=== PATIENT | female | born 1965 | race Caucasian/White ===

== ENCOUNTER 2016-11-12 20:42 | Emergency (ER) | payer OTHER ==
[~2016-11-12] VITALS: Ht 162.6 cm; Wt 56.0 kg
[2016-11-12 20:45] VITALS: Ht 162.6 cm; Wt 56.0 kg
[2016-11-12] MEDS ORDERED: CLIN-73 PO (21:53)
[2016-11-12] MEDS ORDERED: IBUP-1542 PO (21:53)
[2016-11-12] MEDS ORDERED: AMOX1TAB10 PO (21:53)
[2016-11-12] MEDS ORDERED: MUPI22OI2 TOP (21:53)
[2016-11-12] MEDS ORDERED: CEFTRIAXONE 1 GM INJ IM ONE (22:00)
[2016-11-12] MEDS ORDERED: IBUPROFEN 600 MG TAB PO ONE (22:00)
[2016-11-12] MEDS ORDERED: CLINDAMYCIN 300 MG CAP PO ONE (22:00)
[2016-11-12] MEDS ORDERED: MUPIROCIN 2% 22 GM OINT TOP ONE (22:00)
--- NOTE | 2016-11-12 22:17 | ERD ---
ER Documentation Chief Complaint Date/Time DATE: 11/12/16 TIME: 22:11 Chief Complaint sp cat bite yeterday, left arm redness, swelling, pain HPI 51-year-old woman complains of pain, redness, swelling to the left posterior forearm secondary to Bite which occurred yesterday morning (over 24 hours ago). She states symptoms began earlier today. Patient denies fevers or chills, no paresis or paresthesias, no purulent discharge, no chest pain or shortness of breath, no difficulty moving her arm wrist hand or fingers. ROS All systems reviewed and are negative except as per history of present illness. Medications Home Meds Active Scripts Ibuprofen* (Ibuprofen*) 600 Mg Tablet, 600 MG PO Q8 for PAIN AND/OR INFLAMMATION , #60 TAB Prov:DARREN OROPEZA MD 11/12/16 Mupirocin* (Bactroban*) 2% -22 Gram Oint...g., 1 APPLIC TOP BID for 14 Days, EA Prov:DARREN OROPEZA MD 11/12/16 Clindamycin Hcl* (Clindamycin Hcl*) 300 Mg Capsule, 300 MG PO TID for 10 Days, CAP Prov:DARREN OROPEZA MD 11/12/16 Amoxicillin/Potassium Clav (Amox-Clav 875-125 mg Tablet) 875-125 mg Tab, 1 TAB PO BID for 10 Days, #20 TAB Prov:DARREN OROPEZA MD 11/12/16 Allergies Allergies: Coded Allergies: No Known Allergy (Unverified , 11/12/16) PMhx/Soc None Hx Neurological Disorder: Yes (nerve problem) Hx Alcohol Use: No Hx Substance Use: No Hx Tobacco Use: No Smoking Status: Never smoker FmHx Family History: No diabetes Physical Exam Vitals Vital Signs Date Time Temp Pulse Resp B/P Pulse Ox O2 Delivery O2 Flow Rate FiO2 11/12/16 20:45 98.5 90 20 134/83 99 Physical Exam GENERAL: Well-developed, well-nourished, well-hydrated, in no apparent distress , looks nontoxic in appearance HEENT: Moist mucous membranes, pink conjunctiva, no cervical spine tenderness or step-off deformities, no goiter, no jaundice or icterus, extraocular movements intact without pain. No submandibular induration, and no pharyngeal erythema NEURO: Alert and oriented 3, cranial nerves II through XII intact bilaterally, pupils equal round reactive to light, no focal deficits or facial asymmetry, sensation intact distally Strength 5/5 in upper and lower extremities bilaterally CARDIAC: Regular rate and rhythm, no murmurs rubs or gallops LUNGS: Clear bilaterally no wheezing crackles or stridor ABDOMEN: Soft nontender, no guarding, no rigidity, no rebound, no psoas sign no obturator sign. Normoactive bowel sounds SKIN: Moderately sized zone of erythema and skin induration over the dorsal aspect of the left forearm with 2 small puncture wounds consistent with recent Bite. There is no purulent discharge noted, no ulcers, no bleeding, no skin breakdown. Erythema measures about 6 x 8 cm in size and does not cross the elbow or wrist. EXTREMITIES: No clubbing cyanosis or edema, calves are bilaterally symmetrical, no Homans sign, no popliteal cord sign. Distal pulses equal and bilateral PSYCH: Normal affect without agitation or irritability Results 24 hrs Current Medications Medications (Trade) Dose Ordered Sig/Sg Route PRN Reason Start Time Stop Time Status Last Admin Dose Admin Ceftriaxone Sodium (Rocephin) 1 gm ONCE ONCE IM 11/12/16 22:00 11/12/16 22:01 DC Ibuprofen (Motrin) 600 mg ONCE ONCE PO 11/12/16 22:00 11/12/16 22:01 DC Mupirocin (Bactroban) 1 applic ONCE ONCE TOP 11/12/16 22:00 11/12/16 22:01 DC Clindamycin HCl (Cleocin) 300 mg ONCE ONCE PO 11/12/16 22:00 11/12/16 22:01 DC Procedures/MDM I administered ibuprofen 600 mg p.o., mupirocin 2% antibiotic ointment was applied to the forearm, she was given ceftriaxone 1 g intramuscular injection and clindamycin 300 mg p.o. I told the patient to return here tomorrow for reevaluation and told her she may in fact have to be admitted for IV antibiotics but initially we will attempt a trial of outpatient oral antibiotics. She developed an obvious cellulitis although at this time and has not crossed any of her joints and may respond appropriately to outpatient oral antibiotics. Patient has no signs or symptoms of systemic involvement. Differential diagnoses considered, included but not limited to pyomyositis, infectious tenosynovitis, lymphangitis, retained foreign body, as well as metabolic, hematologic, and electrolyte abnormalities. As well as abscess, cellulitis, fractures, and dislocations. Patient feels much better at this time, and vital signs are normal, symptoms have improved. I did give strict instructions to return to the ED if symptoms continue or worsen, patient will otherwise follow-up with primary care physician. Patient understood instructions and agreed to plan. Disclaimer: Inadvertent spelling and grammatical errors are likely due to EHR/ dictation software use and do not reflect on the overall quality of patient care. Also, please note that the electronic time recorded on this note does not necessarily reflect the actual time of the patient encounter. Departure Diagnosis: Primary Impression: Cat bite Encounter type: initial encounter Qualified Code: W55.01XA - Cat bite, initial encounter Additional Impression: Cellulitis of forearm, left Condition: Good Patient Instructions: Cat Bite DARREN OROPEZA MD Nov 12, 2016 22:17
[2016-11-12] MEDS ORDERED: DIPHTH/TET/ACEL PERTUSS (ADULT) 0.5 ML VIAL IM* ONE (23:00)
== END 2016-11-12 22:39 | disposition home or self-care (01) ==
LOC: FTE 20:42
DX: S51.852A Open bite of left forearm, initial encounter (principal); L03.114 Cellulitis of left upper limb; W55.01XA Bitten by cat, initial encounter; Y92.9 Unspecified place or not applicable; Z23 Encounter for immunization
CPT/HCPCS: 90471; 90715; 96372; J0696; Z7502; Z7610

== ENCOUNTER 2016-11-18 12:44 | Emergency (ER) | payer OTHER ==
[~2016-11-18] VITALS: Ht 165.1 cm; Wt 57.5 kg
[~2016-11-18 12:44] MED LIST: AMOX1TAB10 PO; CLIN-73 PO; IBUP-1542 PO; MUPI22OI2 TOP
[2016-11-18 12:46] VITALS: Ht 165.1 cm; Wt 57.5 kg
[2016-11-18] MEDS ORDERED: HC1C30 TOP (13:09)
[2016-11-18] MEDS ORDERED: HYDR-842 PO (13:09)
--- NOTE | 2016-11-18 13:27 | ERD ---
ER Documentation Chief Complaint Date/Time DATE: 11/18/16 TIME: 13:25 Chief Complaint RASH/BITES ALL OVER, ONSET 2 WEEKS, ITCHING HPI 51-year-old female who presents to the emergency room with a rash and bug bites over her extremities and trunk for approximately 2 weeks with associated pruritus. She denies any interdigital space lesions, no fevers or chills. She denies any new medications or detergents. ROS All systems reviewed and are negative except as per history of present illness. Medications Home Meds Active Scripts Hydroxyzine Hcl* (Atarax*) 25 Mg Tab, 25 MG PO Q6H Y for ITCHING, #30 TAB Prov:ARUNA CHOWDHURY MD 11/18/16 Hydrocortisone* Topical (Hydrocortisone* Topical) 1%-28.35 Gm Cream..g., 1 APPLIC TOP Q6 Y for ITCHING, #1 TUB Prov:ARUNA CHOWDHURY MD 11/18/16 Ibuprofen* (Ibuprofen*) 600 Mg Tablet, 600 MG PO Q8 for PAIN AND/OR INFLAMMATION , #60 TAB Prov:DARREN OROPEZA MD 11/12/16 Mupirocin* (Bactroban*) 2% -22 Gram Oint...g., 1 APPLIC TOP BID for 14 Days, EA Prov:DARREN OROPEZA MD 11/12/16 Clindamycin Hcl* (Clindamycin Hcl*) 300 Mg Capsule, 300 MG PO TID for 10 Days, CAP Prov:DARREN OROPEZA MD 11/12/16 Amoxicillin/Potassium Clav (Amox-Clav 875-125 mg Tablet) 875-125 mg Tab, 1 TAB PO BID for 10 Days, #20 TAB Prov:DARREN OROPEZA MD 11/12/16 Allergies Allergies: Coded Allergies: No Known Allergy (Unverified , 11/12/16) PMhx/Soc History of Surgery: No Anesthesia Reaction: No Hx Neurological Disorder: No Hx Respiratory Disorders: No Hx Cardiac Disorders: No Hx Psychiatric Problems: No Hx Miscellaneous Medical Probl: No Hx Alcohol Use: No Hx Substance Use: No Hx Tobacco Use: No Smoking Status: Never smoker FmHx Family History: No diabetes Physical Exam Vitals Vital Signs Date Time Temp Pulse Resp B/P Pulse Ox O2 Delivery O2 Flow Rate FiO2 11/18/16 12:46 97.5 80 18 131/81 99 Physical Exam General: Well developed, well nourished, no acute distress Head: Normocephalic, atraumatic. Eyes: EOM intact ENT: Moist mucous membranes Neck: Full ROM Respiratory: No respiratory distress Cardiovascular: Good capillary refil Abdominal: Nondistended : Deferred MSK: No edema, no unilateral swelling, 5/5 strength Neurologic: Alert and oriented, moving all extremities, normal speech, steady gait Skin: Appears to be bug bites to extremities and trunk, no lesions to the interdigital spaces, no linear lesions Psych: Normal mood Procedures/MDM Clinical exam very consistent with bedbug bites. Topical steroids and antihistamines would be appropriate, I discussed cleaning nighttime clothing and sheets and bedding. Outpatient primary care follow-up recommended. Patient continues to be well-appearing in the emergency room without evidence of complication or infestation. We discussed follow up with the patient's primary care doctor within 24 to 48 hours as needed. We also discussed return to the emergency room for worsening symptoms or worsening condition. Outpatient referral: [None required] Discharge Medications: Hydrocortisone 1% cream, Atarax Departure Diagnosis: Primary Impression: Bedbug bite Encounter type: initial encounter Qualified Code: W57.XXXA - Bedbug bite, initial encounter Condition: Stable Patient Instructions: Bedbug Bites Referrals: [facility] YOU HAVE RECEIVED A MEDICAL SCREENING EXAM AND THE RESULTS INDICATE THAT YOU DO NOT HAVE A CONDITION THAT REQUIRES URGENT TREATMENT IN THE EMERGENCY DEPARTMENT. FURTHER EVALUATION AND TREATMENT OF YOUR CONDITION CAN WAIT UNTIL YOU ARE SEEN IN YOUR DOCTORS OFFICE WITHIN THE NEXT 1-2 DAYS. IT IS YOUR RESPONSIBILITY TO MAKE AN APPOINTMENT FOR FOLOW-UP CARE. IF YOU HAVE A PRIMARY DOCTOR --you should call your primary doctor and schedule an appointment IF YOU DO NOT HAVE A PRIMARY DOCTOR YOU CAN CALL OUR PHYSICIAN REFERRAL HOTLINE AT IF YOU CAN NOT AFFORD TO SEE A PHYSICIAN YOU CAN CHOSE FROM THE FOLLOWING [facility] [address] [facility] [address] [facility] [facility] [address] [facility] [address] [facility] [facility] [address] [facility] [facility] [address] [facility]. [facility] YOU HAVE RECEIVED A MEDICAL SCREENING EXAM AND THE RESULTS INDICATE THAT YOU DO NOT HAVE A CONDITION THAT REQUIRES URGENT TREATMENT IN THE EMERGENCY DEPARTMENT. FURTHER EVALUATION AND TREATMENT OF YOUR CONDITION CAN WAIT UNTIL YOU ARE SEEN IN YOUR DOCTORS OFFICE WITHIN THE NEXT 1-2 DAYS. IT IS YOUR RESPONSIBILITY TO MAKE AN APPOINTMENT FOR FOLOW-UP CARE. IF YOU HAVE A PRIMARY DOCTOR --you should call your primary doctor and schedule and appointment IF YOU DO NOT HAVE A PRIMARY DOCTOR YOU CAN CALL OUR PHYSICIAN REFERRAL HOTLINE AT . IF YOU CAN NOT AFFORD TO SEE A PHYSICIAN YOU CAN CHOSE FROM THE FOLLOWING [facility] INSTITUTIONS: [facility] [id number] [place] [address] [id number] [facility] [address] [place], [place] [id number] [place] [address] [address] [place] [address] Additional Instructions: Call your primary care doctor TOMORROW for an appointment during the next 1 WEEK.Tell the secretary of state that you were referred from this facility.See the doctor sooner or return here if your condition worsens before your appointment time. ARUNA CHOWDHURY MD Nov 18, 2016 13:26
== END 2016-11-18 13:30 | disposition home or self-care (01) ==
LOC: FTE 12:44
DX: S60.562A Insect bite (nonvenomous) of left hand, initial encounter (principal); S60.561A Insect bite (nonvenomous) of right hand, initial encounter; S80.861A Insect bite (nonvenomous), right lower leg, initial encounter; S80.862A Insect bite (nonvenomous), left lower leg, initial encounter; S30.860A Insect bite (nonvenomous) of lower back and pelvis, initial encounter; S21.95XA Open bite of unspecified part of thorax, initial encounter; W57.XXXA Bitten or stung by nonvenomous insect and other nonvenomous arthropods, initial encounter; Y92.9 Unspecified place or not applicable
CPT/HCPCS: 99283